=== PATIENT | male | born 1945 | race Caucasian/White ===

== ENCOUNTER → 2017-04-08 | Outpatient (CLI) | payer MEDICARE, BC ==
--- NOTE | 2017-04-08 11:11 | RADIOLOGY IMAGING REPORT ---
FACILITY: [facility] - [place] PATIENT NAME: Terrell Good : 1945 MR: [id number] V: [id number] EXAM DATE: ORDERING PHYSICIAN: GEN MENDEZ TECHNOLOGIST: Location: [facility] [place] Patient: Terrell Good : 1945 Visit/Account:[id number] Date of Sevice: 04/08/2017 Exam type: KNEE 3 VIEW LEFT History: Bump on lateral left knee Comparison: None. Findings: There is moderate narrowing of the medial compartment of the left knee with mild marginal spurring. This mild narrowing of the lateral compartment and patellofemoral compartments. On the oblique view there are two well-corticated bony densities projecting just lateral to the lateral femoral condyle. This may represent accessory ossicles or the sequelae of old trauma. Incidentally noted are moderat e vascular calcifications in the adjacent soft tissues. IMPRESSION: 1. 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 Well-corticated bon y densities project in the soft tissue just lateral to the lateral femoral condyle which may represen t accessory ossicles or the sequelae of old trauma Moderate vascular calcifications Report Dictated By: Mei De Anda MD at 04/08/2017 11:04 AM Report E-Signed By: Mei De Anda MD at 04/08/2017 11:06 AM WSN:[email or web address]
== END ==
LOC: RAD 10:05
PROVIDERS: ATTEND Family Medicine
DX: M17.12 Unilateral primary osteoarthritis, left knee (principal)